=== PATIENT | female | born 1945 | race Caucasian/White ===

== ENCOUNTER 2016-10-23 15:31 | Emergency (ER) | payer MEDICARE, BC ==
[2016-10-23] MEDS ORDERED: Meclizine 25 MG Tab PO ONE (16:05)
--- NOTE | 2016-10-23 16:12 | EDM.PDOC ---
ED HPI NEURO - General Chief Complaint: Chest Pain Stated Complaint: CHEST PAIN/DIZZY Time Seen by Provider: 10/23/16 15:55 Source: Reports: Patient, RN notes reviewed History Limitations: Reports: No limitations - History of Present Illness INITIAL COMMENTS - FREE TEXT/NARRATIVE: 70-year-old female presents emergency department a complaint of dizziness, she admits she had one episode of dizziness last night with her hands above her head resolved spontaneously she has had a couple more episodes of dizziness starting this morning they last anywhere from one to 5 minutes does have a history of coronary artery disease with myocardial infarction also history of CVA with prolonged dizziness for over a week, she is very anxious and concerned that she may be having a stroke, she is asymptomatic at this time - Related Data Allergies/ADRs: Allergies Allergy/AdvReac Type Severity Reaction Status Date / Time cefaclor [From Ceclor] Allergy Rash Verified 10/23/16 15:46 cephalexin [From Keflex] Allergy Hives Verified 10/23/16 15:46 Home Meds: Home Meds ALPRAZolam [Alprazolam] 0.5 - 1 mg PO TID 10/23/16 [History] Aspirin 325 mg PO DAILY 10/23/16 [History] Cholecalciferol (Vitamin D3) [Vitamin D3] 1,000 mg PO DAILY 10/23/16 [History] Nitroglycerin [Nitrostat] 0.4 mg SL ASDIRECTED 10/23/16 [History] PARoxetine [Paxil] 30 mg PO DAILY 10/23/16 [History] Simvastatin [Zocor] 20 mg PO BEDTIME 10/23/16 [History] metFORMIN [Glucophage] 1,000 mg PO BID 10/23/16 [History] Past Medical History HEENT History: Reports: Impaired vision, Macular degeneration Cardiovascular History: Reports: CAD, High cholesterol, HI, Stents Respiratory History: Reports: Bronchitis, recurrent 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: Reports: Musculoskeletal History: Reports: Arthritis, Back pain, chronic, Other (see below) Other Musculoskeletal History: polio Neurological History: Reports: Concussion, CVA, Vertigo Psychiatric History: Reports: Anxiety, Depression Endocrine/Metabolic History: Reports: Diabetes, type II Hematologic History: Reports: Blood transfusion(s) - Infectious Disease History Infectious Disease History: Reports: Chicken pox, Measles, Mumps - Past Surgical History HEENT Surgical History: Reports: Tonsillectomy GI Surgical History: Reports: Hernia repair/other, Other (see below) Other GI Surgeries/Procedures: mesh implanted Female Surgical History: Reports: Tubal ligation Social & Family History - Tobacco Use Smoking Status *Q: Never Smoker - Recreational Drug Use Recreational Drug Use: No ED ROS GENERAL - Review of Systems Review Of Systems: See Below Constitutional: Reports: no symptoms HEENT: Reports: No symptoms. Denies: Ear discharge, Ear pain Respiratory: Reports: No Symptoms Cardiovascular: Reports: No symptoms GI/Abdominal: Reports: Nausea : Reports: no symptoms Neurological: Reports: Dizziness ED EXAM, NEURO - Physical Exam Exam: See Below Text/Narrative:: General: Female, not in any distress, alert and oriented x3 HEENT: head is atraumatic normocephalic, eyes pupils equal round reactive to light, sclera clear no conjunctivitis appreciated. Ears tympanic membranes clear and stevens landmarks and light reflex are present bilaterally canals are clear. Nose no septal deviation, nares are clear, no blood present. Mouth mucosa is moist and pink no erythema or exudate noted in soft palate, tongue is midline uvula is midline, dentition is intact. Neck: Supple no thyromegaly no tracheal deviation. Nodes: Cervical nodes subclavicular nodes nontender no palpable lymphadenopathy noted. Lungs: clear to auscultation bilaterally with symmetrical respirations, no adventitious noise appreciated. CV: Regular rate and rhythm S1 and S2 appreciated no murmurs rubs or gallops noted. Abdomen: Soft, nontender, no palpable masses or organomegaly appreciated, no distention no guarding bowel sounds are present, . Neuro: Cranial nerves II through XII grossly intact. Hallpike maneuver was positive it introduced the symptoms of dizziness no nystagmus noted Course - Vital Signs Last Recorded V/S: Last Vital Signs Temp 97.7 F 10/23/16 15:53 Pulse 94 10/23/16 16:28 Resp 16 10/23/16 15:53 BP 157/90 H 10/23/16 16:28 Pulse Ox 95 10/23/16 16:28 - Orders/Labs/Meds Orders: Active Orders 24 hr Category Date Time Status Cardiac Monitoring [RC] .As Directed Care 10/23/16 16:04 Active EKG Documentation Completion [RC] ASDIRECTED Care 10/23/16 16:05 Active EKG 12 Lead [EK] Stat Ther 10/23/16 16:04 Ordered Labs: Laboratory Tests 10/23/16 10/23/16 Range/Units 16:15 16:15 WBC 8.5 (4.5-11.0) K/uL RBC 4.64 (3.30-5.50) M/uL Hgb 13.9 (12.0-15.0) g/dL Hct 42.2 (36.0-48.0) % MCV 91 (80-98) fL MCH 30 (27-31) pg MCHC 33 (32-36) % Plt Count 157 (150-400) K/uL Neut % (Auto) 74 H (36-66) % Lymph % (Auto) 17 L (24-44) % Lares % (Auto) 7 H (2-6) % Eos % (Auto) 2 (2-4) % Baso % (Auto) 1 (0-1) % Sodium 144 (140-148) mmol/L Potassium 4.2 (3.6-5.2) mmol/L Chloride 107 (100-108) mmol/L Carbon Dioxide 28 (21-32) mmol/L Anion Gap 9.2 (5.0-14.0) mmol/L BUN 21 H (7-18) mg/dL Creatinine 1.0 (0.6-1.0) mg/dL Est Cr Clr Drug Dosing 37.60 mL/min Estimated GFR (MDRD) 55 L (>60) Glucose 124 H (74-106) mg/dL Calcium 9.0 (8.5-10.1) mg/dL Total Bilirubin 0.2 (0.2-1.0) mg/dL AST 19 (15-37) U/L ALT 37 (12-78) U/L Alkaline Phosphatase 115 (46-116) U/L Troponin I < 0.017 (0.000-0.056) ng/mL Total Protein 7.1 (6.4-8.2) g/dL Albumin 3.5 (3.4-5.0) g/dL Globulin 3.6 H (2.3-3.5) g/dL Albumin/Globulin Ratio 1.0 L (1.2-2.2) Meds: Medications Discontinued Medications Generic Name Dose Route Start Last Admin Trade Name Freq PRN Reason Stop Dose Admin Meclizine HCl 25 mg 10/23/16 16:05 10/23/16 16:27 Antivert PO 10/23/16 16:06 25 mg ONETIME ONE Administration Departure - Departure Time of Disposition: 17:15 Disposition: Home, Self-Care 01 Condition: good Clinical Impression: Benign positional vertigo Qualifiers: Laterality: right Qualified Code(s): H81.11 - Benign paroxysmal vertigo, right ear Forms: ED Department Discharge Additional Instructions: Use meclizine as needed for symptoms, Please followup with your primary care provider in [days] days if not better, please call return to the emergency department with worsening of symptoms. - My Orders Last 24 Hours: My Active Orders 10/23/16 16:04 Cardiac Monitoring [RC] .As Directed EKG 12 Lead [EK] Stat 10/23/16 16:05 EKG Documentation Completion [RC] ASDIRECTED - Assessment/Plan Last 24 Hours: My Active Orders 10/23/16 16:04 Cardiac Monitoring [RC] .As Directed EKG 12 Lead [EK] Stat 10/23/16 16:05 EKG Documentation Completion [RC] ASDIRECTED Plan: Assessment Acuity = [acute Site and laterality = benign positional vertigo complicated patient with known history of coronary artery disease and cerebrovascular accident Etiology = unknown etiology Manifestations = none Location of injury = home Lab values = CBC, CMP, troponin all within normal limits EKG demonstrates a sinus rhythm no ST changes or depressions Plan She had good relief with the meclizine, I did introduce symptoms with Hallpike maneuver, plan to discharge home with meclizine as needed followup with primary care 3-5 days if not better Patient was in agreement with the plan all questions were answered, they were instructed to return to the emergency department or call for worsening symptoms. This note was dictated using [employer] voice recognition software please call with any questions.
[2016-10-23 16:29] VITALS: BP 157/90
== END 2016-10-23 17:36 | disposition home or self-care (01) ==
LOC: JP.ED 15:31
DX: H81.11 Benign paroxysmal vertigo, right ear (principal); I25.2 Old myocardial infarction; I25.10 Atherosclerotic heart disease of native coronary artery without angina pectoris; E78.00 Pure hypercholesterolemia, unspecified; E11.9 Type 2 diabetes mellitus without complications; F41.9 Anxiety disorder, unspecified; F32.9 Major depressive disorder, single episode, unspecified; Z98.51 Tubal ligation status; Z98.890 Other specified postprocedural states; Z79.82 Long term (current) use of aspirin; Z79.899 Other long term (current) drug therapy; Z88.1 Allergy status to other antibiotic agents; Z88.8 Allergy status to other drugs, medicaments and biological substances
CPT/HCPCS: 36415; 80053; 84484; 85025; 93005; 99285; A9270; 93010; 99283

== ENCOUNTER 2019-01-29 18:57 | Emergency (ER) | payer MEDICARE, BC ==
[2019-01-29 20:02] VITALS: BP 178/96; PULSE 97
[2019-01-29] MEDS ORDERED: Ketorolac 60 MG/2 ML SDV IM ONE (20:52)
[2019-01-29] MEDS ORDERED: Acetaminophen/oxyCODONE 325-5 MG Tab PO ONE (20:53)
--- NOTE | 2019-01-29 20:57 | EDM.PDOC ---
ED HPI GENERAL MEDICAL PROBLEM - General Chief Complaint: General Stated Complaint: FALL, HURT LEFT SIDE Time Seen by Provider: 01/29/19 20:54 Source of Information: Reports: Patient History Limitations: Reports: No Limitations - History of Present Illness INITIAL COMMENTS - FREE TEXT/NARRATIVE: pt arrived with pain in her left rib cage. Hurts when she moves and hurts when she takes a deep breath. She [place] [address] [place] and she fell. Onset: Today, Sudden Duration: Hour(s): Location: Reports: Chest, Other ( The left side of the chest is painful. ) Associated Symptoms: Reports: Chest Pain left abd Pain Score (Numeric/FACES): 10 - Related Data Allergies Allergy/AdvReac Type Severity Reaction Status Date / Time cefaclor [From Ceclor] Allergy Rash Verified 01/29/19 20:39 cephalexin [From Keflex] Allergy Hives Verified 01/29/19 20:39 Home Meds: Home Meds ALPRAZolam [Alprazolam] 0.5 - 1 mg PO TID 10/23/16 [History] Aspirin 325 mg PO DAILY 10/23/16 [History] Cholecalciferol (Vitamin D3) [Vitamin D3] 1,000 mg PO DAILY 10/23/16 [History] Nitroglycerin [Nitrostat] 0.4 mg SL ASDIRECTED 10/23/16 [History] PARoxetine [Paxil] 30 mg PO DAILY 10/23/16 [History] Simvastatin [Zocor] 20 mg PO BEDTIME 10/23/16 [History] metFORMIN [Glucophage] 1,000 mg PO BID 10/23/16 [History] Past Medical History HEENT History: Reports: Impaired Vision, Macular Degeneration, Other (See Below) Other HEENT History: wet and dry macular degeneration Cardiovascular History: Reports: CAD, High Cholesterol, AR, Stents Respiratory History: Reports: Bronchitis, Recurrent Gastrointestinal History: Reports: Diverticulosis Genitourinary History: Reports: Renal Calculus 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: Musculoskeletal History: Reports: Arthritis, Back Pain, Chronic Other Musculoskeletal History: polio Neurological History: Reports: Concussion, CVA, Vertigo Psychiatric History: Reports: Anxiety, Depression Endocrine/Metabolic History: Reports: Diabetes, Type II Hematologic History: Reports: Blood Transfusion(s) - Infectious Disease History Infectious Disease History: Reports: Chicken Pox, Measles, Mumps, Rubella - Past Surgical History Cardiovascular Surgical History: Reports: Coronary Artery Stent GI Surgical History: Reports: Hernia Repair/Other, Small Bowel Female Surgical History: Reports: Tubal Ligation Musculoskeletal Surgical History: Reports: Knee Replacement, Other (See Below) Other Musculoskeletal Surgeries/Procedures:: righrt knee replacement Social & Family History - Tobacco Use Smoking Status *Q: Never Smoker - Caffeine Use Caffeine Use: Reports: Coffee - Recreational Drug Use Recreational Drug Use: No ED ROS GENERAL - Review of Systems Review Of Systems: See Below Constitutional: Reports: No Symptoms HEENT: Reports: No Symptoms Respiratory: Reports: Other (pain in left chest. Hurts when she moves and takes a deep breath. ) Cardiovascular: Reports: No Symptoms Endocrine: Reports: No Symptoms GI/Abdominal: Reports: No Symptoms : Reports: No Symptoms Musculoskeletal: Reports: Other (pain in left chest. ) ED EXAM, GENERAL - Physical Exam Exam: See Below Free Text/Narrative:: pt was [place] [address] [place] and she fell and landed on her left side. She arrived quite uncomfortable in the left chest only. She was not tender in the left upper abdoman. Exam Limited By: No Limitations General Appearance: Alert, Anxious, Moderate Distress Ears: Normal TMs Nose: Normal Inspection Throat/Mouth: Normal Inspection Head: Atraumatic Neck: Normal Inspection Respiratory/Chest: Other ( good breath sounds bilaterally. pt is very tenmdwer on the left lateral chest, ) Cardiovascular: Regular Rate, Rhythm GI/Abdominal: Soft, Other ( no left upper abdomanal tenderness. ) (Female) Exam: Deferred Rectal (Female) Exam: Deferred Back Exam: Normal Inspection Extremities: Normal Inspection Neurological: Alert, Oriented, Normal Cognition Course - Vital Signs Last Recorded V/S: Last Vital Signs Temp 36.4 C 01/29/19 20:40 Pulse 97 01/29/19 20:40 Resp 16 01/29/19 20:40 BP 178/96 H 01/29/19 20:40 Pulse Ox 93 L 01/29/19 20:40 - Orders/Labs/Meds Orders: Active Orders 24 hr Category Date Time Status Chest 2V [CR] Stat Exams 01/29/19 22:27 Taken Meds: Medications Discontinued Medications Generic Name Dose Route Start Last Admin Trade Name Freq PRN Reason Stop Dose Admin Ketorolac Tromethamine 60 mg 01/29/19 20:52 01/29/19 21:15 Toradol IM 01/29/19 20:53 60 mg ONETIME ONE Administration Oxycodone/Acetaminophen 1 tab 01/29/19 20:53 01/29/19 21:14 Percocet 325-5 Mg PO 01/29/19 20:54 1 tab ONETIME ONE Administration - Re-Assessments/Exams Free Text/Narrative Re-Assessment/Exam: 01/29/19 22:44 rib detail was obtained which did not reveal any fractures. Her chest xray looked good. Her breathing appeared normal. She was given dilaudid .5 and she did get good relief with that. Departure - Departure Time of Disposition: 22:39 Disposition: Home, Self-Care 01 Condition: Fair Clinical Impression: Contusion of left chest wall - Discharge Information Referrals: PCP,None [Primary Care Provider] - Forms: ED Department Discharge Care Plan Goals: cool pack to left chest, rtc if pt has sob. motrin 600mg tid, norco 5/325 q6h prn for pain. # 10 - My Orders Last 24 Hours: My Active Orders 01/29/19 22:27 Chest 2V [CR] Stat - Assessment/Plan Last 24 Hours: My Active Orders 01/29/19 22:27 Chest 2V [CR] Stat
--- NOTE | 2019-01-29 22:10 | CRLCR ---
INDICATION: Fall. Left anterior lower rib pain. FINDINGS: Three oblique views of the lower left ribs were obtained. There is no fracture seen in the visualized lower left ribs. Dictated by Cornelio Ro MD @ 01/29/2019 10:07:51 PM Dictated by: Cornelio Ro MD @ 01/29/2019 22:08:02 (Electronically Signed)
--- NOTE | 2019-01-29 23:01 | CRLCR ---
INDICATION: Left-sided rib pain COMPARISON: none TECHNIQUE: Two view chest. FINDINGS: The lungs are clear. The heart, mediastinum and pulmonary vessels are of normal size. There is no evidence of pleural fluid or pneumothorax. The visualized osseous structures are unremarkable. IMPRESSION: No acute process. Dictated by Sergei Campbell MD @ Jan 29 2019 10:52PM Signed by Dr. Sergei Campbell @ Jan 29 2019 10:59PM
== END 2019-01-29 23:16 | disposition home or self-care (01) ==
LOC: JP.ED 18:57
DX: S20.212A Contusion of left front wall of thorax, initial encounter (principal); I25.10 Atherosclerotic heart disease of native coronary artery without angina pectoris; I25.2 Old myocardial infarction; M19.90 Unspecified osteoarthritis, unspecified site; E11.9 Type 2 diabetes mellitus without complications; Z95.5 Presence of coronary angioplasty implant and graft; Z86.73 Personal history of transient ischemic attack (TIA), and cerebral infarction without residual deficits; Z79.84 Long term (current) use of oral hypoglycemic drugs; Z98.51 Tubal ligation status; Z88.1 Allergy status to other antibiotic agents; Z79.82 Long term (current) use of aspirin; Z79.899 Other long term (current) drug therapy; V48.4XXA Person boarding or alighting a car injured in noncollision transport accident, initial encounter
CPT/HCPCS: 71046; 71100; 96372; 99283; A9270; J1885